=== PATIENT | male | born 1970 | race Caucasian/White ===

== ENCOUNTER 2017-08-24 09:15 | Emergency (ER) | payer BC ==
--- NOTE | 2017-08-24 09:55 | EDM.PDOC ---
ED HPI GENERAL MEDICAL PROBLEM - General Chief Complaint: ENT Problem Stated Complaint: SWOLLEN THROAT Time Seen by Provider: 08/24/17 09:30 Source of Information: Reports: Patient, Provider History Limitations: Reports: No Limitations - History of Present Illness INITIAL COMMENTS - FREE TEXT/NARRATIVE: 47 yo male presented to the clinic today with a mild sore throat, mild difficulty breathing and some relief with neck extension. A soft tissue neck X- ray was suggestive of epiglottis so he was given a dose of steroid and sent to the ER. Norberto has not had a fever and states that his discomfort is only mild. His vitals in the clinic were normal. He took an OTC antihistamine last night without apparent benefit. 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 Denies: Fever, Chills HEENT: Reports: Throat Pain (mild), Other (feels like phlegm in throat) Respiratory: Reports: No Symptoms. Denies: Shortness of Breath, Wheezing, Cough , Sputum, Hemoptysis Cardiovascular: Reports: No Symptoms Endocrine: Reports: No Symptoms GI/Abdominal: Reports: No Symptoms : Reports: No Symptoms Musculoskeletal: Reports: No Symptoms Skin: Reports: No Symptoms Neurological: Reports: No Symptoms ED EXAM, ENT - Physical Exam Exam: See Below Exam Limited By: No Limitations General Appearance: Alert, WD/WN, No Apparent Distress Eye Exam: Bilateral Eye: Normal Inspection Ears: Normal External Exam, Normal Canal, Hearing Grossly Normal, Normal TMs Nose: Normal Inspection, Normal Mucousa, No Blood Mouth/Throat: Normal Inspection, Normal Gums, Normal Lips, Normal Teeth, Other ( oropharyngeal tissue slightly pale) Head: Atraumatic, Normocephalic Neck: Normal Inspection, Supple, Non-Tender Respiratory/Chest: No Respiratory Distress, Lungs Clear, Normal Breath Sounds, No Accessory Muscle Use Cardiovascular: Regular Rate, Rhythm, No Edema GI/Abdominal: Normal Bowel Sounds, Soft, Non-Tender, No Distention Extremities: Normal Inspection, Normal Range of Motion, Non-Tender, No Pedal Edema Neurological: Alert, Oriented, CN II-XII Intact, Normal Cognition, No Motor/ Sensory Deficits Psychiatric: Normal Affect, Normal Mood Skin: Warm, Dry, Intact, Normal Color, No Rash Lymphatic: No Adenopathy Course - Vital Signs Text/Narrative:: Observation admission was offered to patient after consultation with Dr. Galo. Will give Rocephin 2 gm IV and have him sign out AMA with recheck tomorrow back home in [place], [place]. Last Recorded V/S: Last Vital Signs Temp 36.9 C 08/24/17 09:32 Pulse 77 08/24/17 11:02 Resp 16 08/24/17 09:32 BP 124/85 08/24/17 11:02 Pulse Ox 96 08/24/17 11:02 - Orders/Labs/Meds Orders: Active Orders 24 hr Category Date Time Status cefTRIAXone [Rocephin] 2 gm Med 08/24/17 10:45 Active Sodium Chloride 0.9% [Normal Saline] 50 ml IV ONETIME Medication Orders Ceftriaxone Sodium 2 gm/ (Sodium Chloride) 50 mls @ 100 mls/hr IV ONETIME ONE Stop: 08/24/17 11:14 Labs: Laboratory Tests 08/24/17 08/24/17 Range/Units 10:01 10:01 WBC 15.4 H (4.5-11.0) K/uL RBC 5.45 (4.30-5.90) M/uL Hgb 16.1 H (12.0-15.0) g/dL Hct 46.8 (40.0-54.0) % MCV 86 (80-98) fL MCH 30 (27-31) pg MCHC 34 (32-36) % Plt Count 181 (150-400) K/uL Neut % (Auto) 80 H (36-66) % Lymph % (Auto) 12 L (24-44) % [place] % (Auto) 7 H (2-6) % Eos % (Auto) 1 L (2-4) % Baso % (Auto) 0 (0-1) % C-Reactive Protein 2.05 H (0.0-0.3) mg/dL Meds: Medications Generic Name Dose Route Start Last Admin Trade Name Stephani PRN Reason Stop Dose Admin Ceftriaxone Sodium 2 gm/ 50 mls @ 100 mls/hr 08/24/17 10:45 Sodium Chloride IV 08/24/17 11:14 ONETIME ONE - Radiology Interpretation Free Text/Narrative:: Repeat lateral soft tissue neck shows thickening of the epiglottis, but otherwise normal. Reviewed with radiology. Departure - Departure Time of Disposition: 11:30 Disposition: Home, Self-Care 01 Condition: Fair Clinical Impression: Disorder of epiglottis - Discharge Information Referrals: PCP,None [Primary Care Provider] - Forms: ED Department Discharge - My Orders Last 24 Hours: My Active Orders 08/24/17 10:45 cefTRIAXone [Rocephin] 2 gm Sodium Chloride 0.9% [Normal Saline] 50 ml IV ONETIME - Assessment/Plan Last 24 Hours: My Active Orders 08/24/17 10:45 cefTRIAXone [Rocephin] 2 gm Sodium Chloride 0.9% [Normal Saline] 50 ml IV ONETIME
[2017-08-24] MEDS ORDERED: cefTRIAXone 2 GM in Sodium Chloride 0.9% 50 ML IV ONE (10:45)
--- NOTE | 2017-08-24 10:54 | CR ---
Neck Soft Tissue CLINICAL HISTORY: Neck fullness FINDINGS: Previous due to soft tissues are unremarkable. The there is some fullness to the epiglottis . Aryepiglottic folds are well demarcated. Subglottic airway has a normal caliber. Impression: Fullness of the epiglottis may represent some swelling. This could represent anatomic amelia iation but epiglottitis is not excluded. Clinical correlation necessary
== END 2017-08-24 11:59 | disposition home or self-care (01) ==
LOC: JP.ED 09:15
DX: J38.7 Other diseases of larynx (principal)
CPT/HCPCS: 36415; 70360; 85025; 86140; 96365; 99284; J0696; J7050